=== PATIENT | female | born 1970 | race Caucasian/White ===

== ENCOUNTER 2018-02-13 05:40 | Day surgery (SDC) | payer BC ==
[2018-02-12 11:47] LABS: BASOPHILS 0.3 % (0-2); EOSINOPHILS 3.1 % (0-7); HEMATOCRIT 40.2 % (36.0-48.0); HEMOGLOBIN 13.6 g/dL (12-16); IMMATURE GRANULOCYTES 0.1 % (0-5); LYMPHOCYTES 36.4 % (15-50); MCH 30.2 pg (26.0-34.0); MCHC 33.8 g/dL (31.0-37.0); MCV 89.1 fL (80.0-100.0); MEAN PLATELET VOLUME 10.8 fL (7.4-10.4); MONOCYTES 6.4 % (2-11); NEUTROPHILS 53.7 % (40-80); PLATELET COUNT 239 10x3/uL (130-400); RBC 4.51 10x6/uL (4.00-5.40); RDW 12.5 % (11.5-14.5); WBC 7.8 10x3/uL (4.8-10.8)
[2018-02-13] VITALS (11 sets, daily range): BP systolic 94–127; BP diastolic 44–87; Ht 170.2 cm; Wt 72.7 kg
[~2018-02-13] VITALS: Ht 170.2 cm; Wt 72.7 kg
--- NOTE | ~2018-02-13 | OP ---
PATIENT NAME: LALITA STEWART MEDICAL RECORD: [id number] :66 LOCATION:[facility]1214 ADMISSION DATE: SURGEON: LIO DIAZ MD DATE OF OPERATION: 02/13/2018 PREOPERATIVE DIAGNOSIS: Stress urinary incontinence. POSTOPERATIVE DIAGNOSIS: Stress urinary incontinence. PROCEDURE PERFORMED: Retropubic sling using [employer] [place] [employer] Lynx device. SURGEON: Lio Diaz MD ANESTHESIOLOGIST: Dr. Watson ANESTHESIA: General. FINDINGS: Hypermobile urethra. The vaginal mucosa is unremarkable. There is a first-degree cystocele present. The uterus has no appreciable prolapse. Cervix was visualized and unremarkable. At the time of cystoscopy, the bladder is intact and unremarkable appearing mucosa. SPECIMENS: None. SPECIMEN DISPOSITION: None applicable. ESTIMATED BLOOD LOSS: Less than or equal to 125 cc. FLUIDS: 900 cc of lactated Ringer's. URINE OUTPUT: 200 cc of clear urine. COMPLICATIONS: None. DRAINS: Gibbs to gravity with vaginal packing. INDICATIONS: The patient is a 47-year-old female with loss of urine with cough, sneeze, and sudden movement. The patient has demonstrable ELLIOTT on simple cystometrics in the office. The patient has done Kegel exercises in the past and wishes and desires definitive treatment. The patient understands risks and benefits of this procedure as well as the limitations and the unique risk of mesh placement. DESCRIPTION OF PROCEDURE: After informed consent was assured, the patient was taken to the operating room where anesthetic was obtained and she was placed in Tristen stirrups. The patient is now prepped and draped. A weighted speculum was introduced in the vagina, and the urethra is catheterized and urine removed. The incision sites for the Lynx needle was selected and marked. The vaginal incision was now made of 1.5 cm to 2 cm inferior to the urethra. Prior to the incision, 0.5% lidocaine solution was injected for hydrodissection of the vaginal tissues. Incision was made with a 15 blade and dissection was carried out to the left and right of the urethra with Metzenbaum scissors. Once there was adequate dissection, the attention was directed to the abdomen, where the incisions are made over the preselected sites. The Lynx needle on the right side is now passed through from the abdominal wall to the vaginal vault. This OPERATIVE REPORT [id number] LALITA STEWART was repeated on the left side. Cystoscopy was performed and it was felt that needle placement was too close to the bladder neck. So, the needles were removed and replaced. A second cystoscopy with adequate placement of the needles. The sling is now loaded and pulled through onto the abdomen. The final adjustments were made and the stay-tab is now cut. The sheaths were removed. The mesh was held in place with a hemostat as the sheaths are removed from the mesh. journeyman press operator was able to pass tip of the finger between the mesh and the urethra. The vaginal mucosa incision is now closed with a Vicryl stitch. Subcuticular stitch is placed on the abdominal incisions after cutting excess mesh protruding from the incision. The Gibbs catheter was restarted and vaginal packing placed with triple antibiotic ointment, petroleum jelly covering the Kerlix. Gibbs catheter will remain in place until tomorrow, at which time, the packing and catheter will be removed for voiding trials. Sponge and needle count is correct. TRANSINT:[id number] Voice Confirmation ID: [id number] DOCUMENT ID: [id number] LIO DIAZ MD at 1232 CC: [id number] DICTATION DATE: 02/13/18 0851 TREE CHIPPER: 02/13/18 0937 [facility] [address] [place] [address]
[~2018-02-13 05:40] MED LIST: ADVIL200 MG PO; ZIAC 5-6.25 MG1 TAB PO
[2018-02-13 21:08] LABS: BASOPHILS 0.1 % (0-2); EOSINOPHILS 0.1 % (0-7); HEMOGLOBIN 11.8 g/dL (12-16); IMMATURE GRANULOCYTES 0.2 % (0-5); LYMPHOCYTES 15.5 % (15-50); MCH 30.2 pg (26.0-34.0); MCHC 33.7 g/dL (31.0-37.0); MCV 89.5 fL (80.0-100.0); MEAN PLATELET VOLUME 10.9 fL (7.4-10.4); MONOCYTES 5.2 % (2-11); NEUTROPHILS 78.9 % (40-80); PLATELET COUNT 226 10x3/uL (130-400); RBC 3.91 10x6/uL (4.00-5.40); RDW 12.5 % (11.5-14.5)
[2018-02-13 21:11] LABS: WBC 14.1 10x3/uL (4.8-10.8)
[2018-02-14 00:09] VITALS: BP 111/65
[2018-02-14 04:33] VITALS: BP 133/74
[2018-02-14 08:00] VITALS: BP 120/72
== END 2018-02-14 13:27 | disposition home or self-care (01) ==
LOC: D.OPS 05:40 → D.WS 05:40 → D.OPS 07:30 → D.PAN 07:30 → D.WS 09:24 → D.OPS 02-14 13:27
PROVIDERS: Obstetrics & Gynecology
DX: N39.3 Stress incontinence (female) (male) (principal)